=== PATIENT | male | born 1995 | race Caucasian/White ===

== ENCOUNTER 2016-12-02 23:10 | Inpatient (IN) ==
[2016-12-03] MEDS ORDERED: SODIUM CHLORIDE 0.9% 1,000 ML IV STA ×2 (01:41→03:25)
[2016-12-03 02:32] LABS: Apearance,Urine CLOUDY (Clear); Bacteria,Urine Many /HPF (Few); Blood, Urine Small mg/dL (Negative); Calcium 11.1 MG/DL (8.5-10.1); Glucose,Urine (UA) 50 mg/dL (Negative); Granular Casts,Urine 33 /LPF (0-1); Hyaline Casts,Urine 49 /LPF (0-3); Ketones,Urine 5 mg/dL (Negative); Nitrite,Urine Negative (Negative); Osmolality,Calculated 268.7 MOS/KG (273-304); Potassium 4.5 MMOL/L (3.5-5.1); Protein,Urine 100 MG/DL; RBC,Urine 11 /HPF (0-4); Urine Color Amber (Yellow); Urine Specific Gravity 1.021 (1.001-1.035); WBC,Urine 87 /HPF (0-6)
[2016-12-03 02:34] LABS: Bilirubin,Urine Small mg/dL (Negative)
--- NOTE | 2016-12-03 03:05 | EKG Report ---
Stationary ECG Study [facility] ER Test Date: 12/03/2016 1:56:34 AM Pat Name: JEWELL BOWEN Department: Room: Gender: M [employer]: : 1995 Requested by: Lata Benoit Order Number: [id number] Reading MD: DAGO RANKIN Intervals [place] Rate: 88 P: 80 [place]: 164 QRS: 125 QRSD: 100 T: 71 QT: 358 QTc: 404 Interpretive Statements SINUS RHYTHM RIGHT ATRIAL ENLARGEMENT LEFT POSTERIOR FASCICULAR BLOCK Electronically Signed On 12-03-16 09:28:00 CDT by DAGO RANKIN [email or web address]
[2016-12-03 03:10] LABS: CKMB % 0.5 %
[2016-12-03] MEDS ORDERED: ONDANSETRON 4 MG/2 ML VIAL IV STA (03:25)
[2016-12-03] MEDS ORDERED: ONDANSETRON 4 MG/2 ML VIAL ONE (03:26)
[2016-12-03] MEDS ORDERED: ONDANSETRON 4 MG/2 ML VIAL IV PRN (04:06)
[2016-12-03] MEDS ORDERED: MORPHINE 2 MG/1 ML SYRINGE IV PRN (04:06)
[2016-12-03] MEDS ORDERED: BISACODYL 5 MG TABLET PO PRN (04:06)
[2016-12-03] MEDS ORDERED: ACETAMINOPHEN 325 MG TABLET PO PRN (04:06)
[2016-12-03] MEDS ORDERED: DOCUSATE SODIUM 100 MG CAPSULE PO PRN (04:06)
--- NOTE | 2016-12-03 04:08 | Hospitalist History & Physical ---
Assessment and Plan (1) Rhabdomyolysis Status: Acute Current Visit: Yes Qualifiers: Rhabdomyolysis type: non-traumatic Qualified Code(s): M62.82 - Rhabdomyolysis (2) Acute renal failure due to rhabdomyolysis Status: Acute Current Visit: Yes (3) Nausea and vomiting Status: Acute Current Visit: Yes Qualifiers: Vomiting type: unspecified Vomiting Intractability: non-intractable Qualified Code(s): R11.2 - Nausea with vomiting, unspecified (4) Muscle cramps Status: Acute Current Visit: Yes (5) Acute UTI Status: Acute Current Visit: Yes (6) Dehydration Status: Acute Assessment and plan: Plan: Admit for aggressive IV fluid resuscitation Check urine cultures, start antibiotics for UTI Recheck renal function after adequate hydration Supportive care for pain related to muscle cramping Current Visit: Yes History of Present Illness Chief complaint: Cramping all over, overheated History of present illness: Mr. Barajas is a 21 year old male with no chronic medical conditions, no daily medicines who presents tonight with severe muscle cramping and "pain all over." He apparently was working outside in the heat, became dehydrated while working for a [employer] company. Last night he had a poor appetite, followed by nausea and vomiting, and severe muscle cramping, which woke him up late last night prompting him to come to the emergency room. Workup in the ER was consistent with acute renal failure likely due to rhabdomyolysis. He denies shortness of breath, chest pain. At this time his nausea has resolved. He rated his pain related to muscle cramping as 7 out of 10 at worst, relieved partially with fluids and pain medications thus far. Home Medications Medication Instructions Recorded Confirmed Type No Known Home Medications [No 12/02/16 12/02/16 History Known Home Medications] Allergies Allergy/AdvReac Type Severity Reaction Status Date / Time Penicillins Allergy RASH Verified 12/02/16 23:21 sulfamethoxazole Allergy RASH Verified 12/02/16 23:21 [From Bactrim] trimethoprim [From Bactrim] Allergy RASH Verified 12/02/16 23:21 Medical,Surgical,& Family Hx - Medical History Cardio: History of: Cardiovascular Problems ("hole in heart") No history of: Hypertension Endocrine: No history of: Diabetes Mellitus (NIDDM) Respiratory: No history of: COPD Genitourinary: No history of: Problems Gastrointestinal: No history of: GERD - Surgical History Additional Surgical History: No prior surgery - Family History Family History: Reports;: Family Hypertension - Social History Smoking Status: Current some day smoker Have you smoked in the last 12 months: Yes Time spent discussing smoking cessation with patient: 3 to 10 minutes Frequency of Alcohol Use: Frequently Type of Drug Use: Marijuana Marital Status: Unknown Functional capacity: independent ambulation Review of systems: A 12 point review of systems is negative except as specified in the HPI Exam - Constitutional Vitals: Period Temp Pulse Resp BP Sys/Martínez Pulse Ox Last 24 Hr 98.8 F-98.8 F 86-120 18-24 111-139/83-100 98 Exam: EXAM: CONSTITUTIONAL: non toxic, NAD HEENT: NC, AT, OP dry mucous membranes, KYARA, EOMI CV: RRR no m/g/r RESP: clear B/L, no w/r/r GI: abd soft, NT, ND, +bowel sounds INTEGUMENTARY: no lesions or rash EXTREMITIES: no c/c/e NEURO: no focal deficits PSYCH: unremarkable, A/O x3 Results - Labs CBC & BMP: 12/03/16 01:49 Lab Results: I have reviewed the past 24 hour labs - EKG EKG shows: sinus rhythm
--- NOTE | 2016-12-03 04:12 | Emergency Department Note ---
I, Abbe Green, am scribing for, and in the presence of, Lata Benoit DO 01:57. I, Lata Benoit DO, personally performed the services described in this documentation, ascribed by Abbe Green in my presence, and it is both accurate and complete 412 . Arrival - Arrival Chief Complaint: Non-Specific Stated Complaint: was working out , and body started to lock up ED Nursing Triage Note: Pt states that he got too hot when working out and has been vomiting every time he eats. States he is dizzy and his "body is locking up." Mode of Arrival: Ambulatory Limitations: No Limitations Source: Patient Time Seen by Provider: 12/03/16 01:40 - History of Present Illness HPI Narrative: Pt is a 21 y/o white male arriving to ED c/o generalized muscle aches and vomiting that onset yesterday. 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 He reports drinking 2L of gatorade but having increasing sweating and feeling lightheaded. he reports no breaks and that going to sleep tonight didn't help due to increased muscle cramping. he reports he didn't take any medication for the cramping or for the vomiting because he knew he was going to come in. He also reports multiple epsiodes of vomiting today after trying to eat. He confirms a dark yellow urine and dizziness when standing. Pt also admits to drinking occasionally and smoking one joint of marijuana [employer]. He reports no other complaints to ED. Onset (ago): hour(s) Consistency: constant Allergies/Adverse Reactions: Allergies Allergy/AdvReac Type Severity Reaction Status Date / Time Penicillins Allergy RASH Verified 12/02/16 23:21 sulfamethoxazole Allergy RASH Verified 12/02/16 23:21 [From Bactrim] trimethoprim [From Bactrim] Allergy RASH Verified 12/02/16 23:21 Home Medications: Home Medications Medication Instructions Recorded Confirmed Type No Known Home Medications [No 12/02/16 12/02/16 History Known Home Medications] Review of System - Review of System 12 point system: reviewed and no additional remarkable complaints except as stated - Review of System Respiratory: Absent: cough Cardiovascular: Absent: chest pain Gastrointestinal: Present: nausea, vomiting. Absent: abdominal pain, diarrhea Neurological: Present: vertigo. Absent: headache, weakness, numbness Medical,Surgical,& Family Hx - Medical History Cardio: History of: Cardiovascular Problems ("hole in heart") - Social History Smoking Status: Never smoker Frequency of Alcohol Use: Frequently Type of Drug Use: Marijuana Exam Vital Signs: Vital Signs Temperature 98.8 F 12/03/16 02:10 Pulse Rate 86 12/03/16 02:10 Respiratory Rate 18 12/03/16 02:10 Blood Pressure 139/100 12/03/16 02:10 O2 Sat by Pulse Oximetry 98 12/02/16 23:22 - General General appearance: alert, in no apparent distress, other (bilateral legs visibly cramping) - Head Head exam: Present: atraumatic, normocephalic, normal inspection - Eye Eye exam: Present: normal appearance, PERRL, EOMI - ENT ENT exam: Present: normal exam, normal oropharynx, mucous membranes moist, TM's normal bilaterally, normal external ear exam - Neck Neck exam: Present: normal inspection, full ROM, trachea midline. Absent: tenderness - Chest Chest inspection: Present: normal inspection, symmetric chest wall rise. Absent : tenderness - Respiratory Respiratory exam: Present: normal lung sounds bilaterally - Cardiovascular Cardiovascular exam: Present: regular rate, normal rhythm, normal heart sounds - Abdominal Exam Abdominal exam: Present: soft, normal bowel sounds. Absent: distention, tenderness, guarding, rebound - Extremities Exam Extremities exam: Present: normal inspection, full ROM, normal capillary refill. Absent: tenderness, pedal edema - Back Exam Back exam: Present: normal inspection, full ROM. Absent: tenderness - Neurological Exam Neurological exam: Present: alert, oriented X3, CN II-XII intact, normal gait, reflexes normal - Psychiatric Psychiatric exam: Present: normal affect, normal mood - Skin Skin exam: Present: warm, dry, intact, normal color Course Course Narrative: suspect heat exhaustion vs rhabdo. CK reveals just under 3000 and Cr is 4.4. Given 2L bolus and ekg normal. Given renal failure, will admit for fluids overnight. hospitalist consulted. pt is informed of test results. Results - Labs CBC & BMP: 12/03/16 01:49 Disposition Clinical Impression: Rhabdomyolysis Case discussed with: patient Disposition: Still a Patient Condition: Stable
[2016-12-03] MEDS: SODIUM CHLORIDE 0.9% 1,000 ML IV SCH ×4 (05:41→19:41)
[2016-12-03] MEDS: PANTOPRAZOLE 40 MG TABLET PO SCH (10:30)
[2016-12-03] MEDS: NICOTINE 7 MG/24 HR PATCH TRANSDERM SCH (14:19)
[2016-12-04] MEDS: SODIUM CHLORIDE 0.9% 1,000 ML IV SCH ×4 (00:34→12:43)
[2016-12-04 07:09] LABS: Basophils % 0.4 % (0.0-0.8); Eosinophils # 0.1 10*3/uL (0.0-0.87); Eosinophils % 0.8 % (0.00-10.9); Hematocrit 36.1 VOL% (42.0-52.0); Hemoglobin 12.4 GM/DL (14.0-18.0); Immature Granulocytes % 0.1 %; Immature Granulocytes Absolute 0.01 #; Lymphocytes # 3.5 10*3/uL (1.4-4.0); Mean Corpuscular HGB Conc 34.3 GM/DL (32-36); Mean Corpuscular Hemoglobin 30 PG (27-34); Mean Corpuscular Volume 86.4 FL (87-102); Mean Platelet Volume 9.9 FL (9.6-12.0); Monocytes # 0.7 10*3/uL (0.11-0.8); Monocytes % 9.7 % (1.7-12.7); Neutrophils # 2.8 10*3/uL (1.4-7.4); Platelet Count 212 T/CUMM (130-400); Red Blood Count 4.18 MC/CUMM (3.8-5.5); Red Cell Distribution Width 12.6 % (9.3-17.3); White Blood Count 7.1 T/CUMM (4-12)
[2016-12-04 08:09] LABS: Albumin 2.9 G/DL (3.4-5.0); Bilirubin,Total 0.8 MG/DL (0.2-1.0); Osmolality,Calculated 282.3 MOS/KG (273-304); Potassium 4.6 MMOL/L (3.5-5.1); Total Protein 5.3 G/DL (6.4-8.3)
[2016-12-04] MEDS: PANTOPRAZOLE 40 MG TABLET PO SCH (09:49)
--- NOTE | 2016-12-04 10:33 | Discharge Summary ---
<Annette Augusteda - Last Filed: 12/04/16 10:21> Hospital Course - Hospital Course Hospital Course: This is a 21-year-old male that presented to the ED at [facility] on yesterday for evaluation of severe muscle cramps and generalized pain. The patient reported no significant medical history or surgical history at the time of ED presentation. 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 He had been working outside on yesterday and reported that he became dehydrated. He complete his work day and went home. On the early part of the evening on yesterday, the patient reported poor appetite which was subsequently followed by nausea and vomiting and severe muscle cramping. The patient was awakened out of his sleep as a result of these symptoms. He became alarmed and presented to the ED for further evaluation.The patient was assessed at the time of ED presentation. Labs were obtained; which reported mild hyponatremia with a sodium of 131, acute renal impairment with a BUN of 26 and creatinine of 4.40. In addition, the patient's total creatinine kinase was noted at 2666 and CK-MB was noted at 13.9. Urinalysis revealed mild urinary tract infection. The patient was subsequently admitted to the hospitalist services for continuation of care. At the time of admission, aggressive intravenous fluid resuscitation and empiric antibiotics were initiated. The patient's condition slowly improved. The patient condition is now stable. He has not experienced any significant events. The patient has been fully rehydrated. We feel that the patient is indeed appropriate for discharge to follow-up with his primary care physician as directed. We spoke with the patient in great detail regarding the need to constantly hydrate throughout the day while he is working. Patient verbalized understanding of these instructions. Discharge Plan - Discharge Data Disposition: Disch To Home/Self Care - Discharge Medications New Ciprofloxacin Tab [Cipro Tab] 500 mg PO BID #6 tablet - Follow Up or Referral - Forms/Instructions Exam - Constitutional Vitals: Period Temp Pulse Resp BP Sys/Martínez Pulse Ox Last 24 Hr 97.0 F-98.3 F 43-91 18-20 107-126/52-88 97-98 Discharge Results Procedures and tests throughout hospitalization: Pending Orders 12/03/16 Urine Culture Routine 12/05/16 04:00 CBC [Comp Blood Count Auto Diff] IN AM CMP [Comprehensive Metabolic Panel] IN AM Magnesium IN AM Phosphorous IN AM Labs on day of discharge: Labs from last 24 hours 12/04/16 12/04/16 05:17 05:17 WBC 7.1 RBC 4.18 Hgb 12.4 L Hct 36.1 L MCV 86.4 L MCH 30 MCHC 34.3 RDW 12.6 Plt Count 212 MPV 9.9 Neut % (Auto) 40.0 Lymph % (Auto) 49.0 [place] % (Auto) 9.7 Eos % (Auto) 0.8 Baso % (Auto) 0.4 Neut # (Auto) 2.8 Lymph # (Auto) 3.5 [place] # (Auto) 0.7 Eos # (Auto) 0.1 Baso # (Auto) 0.0 Immature Gran % 0.1 Nucleated RBC % 0.0 Immature Gran # 0.01 Nucleated RBCs # 0.00 Sodium 141 Potassium 4.6 Chloride 108 H Carbon Dioxide 27 Anion Gap 10.6 BUN 21 H Creatinine 1.00 GFR Calculation 110 BUN/Creatinine Ratio 21.00 H Glucose 87 Calculated Osmolality 282.3 Calcium 8.0 L D Total Bilirubin 0.80 AST 136 H ALT 43 Alkaline Phosphatase 63 Total Creatine Kinase 8763 H D Total Protein 5.3 L Albumin 2.9 L Globulin 2.4 Albumin/Globulin Ratio 1.2 DS: Provider Date of admission: 12/03/16 04:06 Primary care physician: . No PCP Attending physician on admission: Luciano Parish DO Discharging clinician: Misbah Auguste CNP <Vitaliy Best - Last Filed: 12/04/16 11:33> Hospital Course - Time spent with patient Time with patient DS: Less than 30 minutes (25) Diagnosis - Discharge Diagnosis (1) Rhabdomyolysis Status: Resolved (2) Acute renal failure due to rhabdomyolysis Status: Resolved (3) Dehydration Status: Resolved (4) Nausea and vomiting Status: Resolved (5) Muscle cramps Status: Resolved (6) UTI (urinary tract infection) Status: Resolved Discharge Plan - Discharge Data Condition at Discharge: Stable Discharge Diet: advance to your usual diet Activity: resume usual activities as tolerated Hygiene: no restrictions Weight Bearing at Discharge: full weight bearing Driving: no restrictions Contact your physician if you experience:: fever over 101 Exam - Constitutional General appearance: normal weight - Head Head exam: Present: normocephalic, atraumatic - Eye Eye exam: Present: EOMI Pupils: Present: KYARA - ENT ENT exam: Present: normal exam - Neck Neck exam: Present: normal inspection - Respiratory Respiratory exam: Present: clear to auscultation bilaterally. Absent: rhonchi, wheezes - Cardiovascular Cardiovascular exam: Present: regular rate and rhythm - GI/Abdominal GI/Abdominal exam: Present: normal bowel sounds, soft. Absent: tenderness, rebound - Extremities Exam Extremities exam: Present: normal inspection - Back Exam Back exam: Present: normal inspection - Neurological Exam Neurological exam: Present: alert, oriented X3 - Psychiatric Psychiatric exam: Present: normal affect, normal mood - Skin Skin exam: Present: warm, intact
[2016-12-04 11:56] VITALS: BP 108/72
[2016-12-04] MEDS: NICOTINE 7 MG/24 HR PATCH TRANSDERM SCH (12:43)
== END 2016-12-04 12:43 | disposition home or self-care (01) | DRG 683 ==
LOC: N.ED 23:10 → N.EDINP 12-03 04:06 → SUATTDRO 12-03 04:06 → N.2E 12-03 04:53
PROVIDERS: ADMIT Internal Medicine; ATTEND Internal Medicine